=== PATIENT | male | born 1980 | race Caucasian/White ===

== ENCOUNTER 2016-12-14 12:22 | Emergency (ER) | payer MEDICAID ==
[~2016-12-14] VITALS: Ht 175.3 cm; Wt 74.8 kg
[~2016-12-14 12:22] MED LIST: FERR-57 PO; LEVO500T20 PO; LOSA100T11 PO; METF-510 PO; METR500T PO; MULT-74 PO
[2016-12-14 12:25] VITALS: BP_SYST 188
--- NOTE | 2016-12-14 12:25 | NUR ---
Patient triaged and placed in waiting room. VSS and patient appears in no acute distress at this time. Accompanied by family, awaiting available bed, and MD notified of need for MSE.
--- NOTE | 2016-12-14 12:29 | NUR ---
Patient to ER stating that he was fixing his car and a piece of equipment fall on his face. Patient has trauma to the upper teeth and inside upper gum with pain upper teeth, states teeth are loose, chin and headache /. Denies KO, -NV, -blurry vision, ambulated with steady gait, no bleeding at this time, no signs of acute distress.
--- NOTE | 2016-12-14 12:31 | NUR ---
ER MD Contreras at bedside evaluating the patient
[2016-12-14] MEDS ORDERED: KETOROLAC TROMETHAMINE 60 MG/2 ML VIAL IM ONE (13:00)
--- NOTE | 2016-12-14 13:27 | NUR ---
ER MD Contreras aware of VS
--- NOTE | 2016-12-14 13:34 | NUR ---
ER MD Contreras at bedside discussing BP home management and the need to see primary physician for BP management. Patient verbalizes understanding
[2016-12-14] MEDS ORDERED: cloNIDine HCL 0.1 MG TABLET PO ONE (13:45)
--- NOTE | 2016-12-14 14:25 | NUR ---
ER MD Contreras aware of VS. States OK to discharge
[2016-12-14 14:27] VITALS: BP_SYST 159
--- NOTE | 2016-12-14 14:27 | NUR ---
Patient given written and verbal discharge instructions and verbalizes understanding. ER MD Contreras discussed with patient the results and treatment provided. Patient in stable condition. ID arm band removed. Rx of motrin & chlorhexidine given. Patient educated on pain management and to follow up with PMD. Pain Scale 0/10. Opportunity for questions provided and answered. Patient advised to see primary physician and/or to return to ER if symptoms get worse.
== END 2016-12-14 14:27 | disposition home or self-care (01) ==
LOC: SED 12:22
DX: S01.511A Laceration without foreign body of lip, initial encounter (principal); S00.83XA Contusion of other part of head, initial encounter; S09.93XA Unspecified injury of face, initial encounter; I10 Essential (primary) hypertension; E11.9 Type 2 diabetes mellitus without complications; Z88.5 Allergy status to narcotic agent; W20.8XXA Other cause of strike by thrown, projected or falling object, initial encounter; Y93.89 Activity, other specified; Y99.8 Other external cause status; Y92.89 Other specified places as the place of occurrence of the external cause
CPT/HCPCS: 70486; 96372; 99284; J1885

== ENCOUNTER 2018-06-13 13:34 | Inpatient (IN) | payer MEDICAID ==
[~2018-06-13] VITALS: Ht 175.3 cm; Wt 75.3 kg
[~2018-06-13 13:34] MED LIST changes: -LOSA100T11 PO; +LOSA100T3 PO
[2018-06-13 13:41] VITALS: BP_SYST 146
[2018-06-13] MEDS ORDERED: ONDANSETRON HCL 4 MG/2 ML VIAL IVP ONE (14:15)
[2018-06-13] MEDS ORDERED: NACL 0.9% 1,000 ML IV ONE (14:15)
[2018-06-13 14:55] LABS: CALCIUM 8.2 mg/dL (8.4-11.0); CREATININE 4.96 mg/dL (0.55-1.30); POTASSIUM 5.1 mmol/L (3.5-5.1)
[2018-06-13 15:00] LABS: ALBUMIN 2.2 g/dL (3.4-4.8); TOTAL BILIRUBIN 0.2 mg/dL (0.0-1.0)
[2018-06-13 15:05] LABS: HEMATOCRIT 37.3 % (36-54); HEMOGLOBIN 12.1 g/dL (14.0-18.0); MEAN CORPUSCULAR HEMOGLOBIN 27 pg (27-31); MEAN CORPUSCULAR HGB CONC 32 % (32-36); MEAN CORPUSCULAR VOLUME 84 fL (79.0-98.0); PLATELET COUNT (AUTO) 392 K/uL (130-430); RED BLOOD CELL COUNT(AUTO) 4.46 MIL/uL (4.2-6.2); RED CELL DISTRIBUTION WIDTH 12.7 % (9.0-15.0); WHITE BLOOD COUNT (AUTO) 7.5 K/uL (4.8-10.8)
[2018-06-13 15:11] LABS: BILIRUBIN,URINE NEGATIVE (NEGATIVE); BLOOD, URINE 2+ (NEGATIVE); CLARITY/URINE CLOUDY (CLEAR); COLOR,URINE YELLOW (YELLOW); GLUCOSE,URINE TRACE (NEGATIVE); KETONES,URINE NEGATIVE (NEGATIVE); LEUKOCYTE ESTERASE ,URINE NEGATIVE (NEGATIVE); NITRITE, URINE NEGATIVE (NEGATIVE); PH,URINE 5.5 (5.0-8.0); PROTEIN URINE 3+ (NEGATIVE); UROBILINOGEN,URINE 0.2 (0.2-1.0)
[2018-06-13 15:15] LABS: BACTERIA,URINE MODERATE /HPF (None Seen); WBC,URINE 0-3 /HPF (0-3)
[2018-06-13 15:16] LABS: FINE GRANULAR CASTS,URINE 0-10 /LPF (None Seen)
[2018-06-13 15:21] LABS: BARBITURATE, URINE NEGATIVE (NEG <=200); BENZODIAZEPINE, URINE NEGATIVE (NEG <=150); CANNABINOID, URINE NEGATIVE (NEG <=50); COCAINE, URINE NEGATIVE (NEG <=150); METHAMPHETAMINES SCREEN,URINE NEGATIVE (NEG <=500); OPIATE, URINE NEGATIVE (NEG <=100); PHENCYCLIDINE SCREEN,URINE NEGATIVE (NEG <=25); UR TRICYCLIC ANTIDEPRESSANTS NEGATIVE (NEG <=300); URINE AMPHETAMINE NEGATIVE (NEG <=500); URINE METHADONE NEGATIVE (NEG <=200); URINE OXYCODONE SCREEN NEGATIVE (NEG <=100); URINE PROPOXYPHENE SCREEN NEGATIVE (NEG <=300)
[2018-06-13] MEDS ORDERED: LISI-600 PO ×2 (16:02→16:04)
[2018-06-13] MEDS ORDERED: GLIP10TA11 PO ×2 (16:02→16:04)
[2018-06-13] MEDS ORDERED: LOM2.5 PO (16:05)
[2018-06-13 16:14] LABS: BAND % (MANUAL) 54 % (0-6); EOSINOPHILS % (MANUAL) 0 % (0-7); LYMPHOCYTES % (MANUAL) 8 % (20-46); MONOCYTES % (MANUAL) 6 % (0-11)
[2018-06-13 16:16] LABS: BASOPHILS % (MANUAL) 0 % (0-2)
[2018-06-13 16:22] VITALS: BP_SYST 109
[2018-06-13] MEDS: NACL 0.9% 1,000 ML IV SCH (17:43)
[2018-06-13 20:00] VITALS: BP_SYST 117
[2018-06-13] MEDS ORDERED: ACETAMINOPHEN 325 MG TABLET PO PRN (21:30)
[2018-06-13] MEDS ORDERED: LORazepam 2 MG/ML VIAL IVP PRN (21:30)
[2018-06-13] MEDS ORDERED: DEXTROSE 50% JECT 50 ML DISP.SYRIN IVP PRN ×2 (21:30)
[2018-06-13] MEDS ORDERED: HYDROcodone/ACETAMIN 5-325 MG TAB (NORCO/ VICODIN) PO PRN (21:30)
[2018-06-13] MEDS ORDERED: INSULIN REGULAR, HUMAN 100 UNITS/ML, 10 ML VIAL (novoLIN R) SUBCUT PRN (21:30)
[2018-06-13] MEDS ORDERED: HYDROcodone/ACETAMIN 10-325 MG TAB PO PRN (21:30)
[2018-06-13] MEDS ORDERED: ONDANSETRON HCL 4 MG/2 ML VIAL IVP PRN (21:30)
[2018-06-14] VITALS: BP_SYST 118
[2018-06-14] MEDS: NACL 0.9% 1,000 ML IV SCH ×3 (03:05→14:54)
[2018-06-14] MEDS: DIPHENOXYLATE HCL/ATROP SULF 2.5 MG TAB PO SCH ×2 (03:35→14:54)
[2018-06-14 06:55] LABS: BASOPHILS # (AUTO) 0.1 K/uL (0.0-0.2); BASOPHILS % (AUTO) 0.8 % (0.0-2.0); EOSINOPHILS # (AUTO) 0.1 K/uL (0.0-0.4); EOSINOPHILS % (AUTO) 1.7 % (0.0-4.0); HEMATOCRIT 33.7 % (36-54); HEMOGLOBIN 11.1 g/dL (14.0-18.0); LYMPHOCYTES # (AUTO) 2.1 K/uL (1.0-5.5); MEAN CORPUSCULAR HEMOGLOBIN 28 pg (27-31); MEAN CORPUSCULAR HGB CONC 33 % (32-36); MEAN CORPUSCULAR VOLUME 85 fL (79.0-98.0); MONOCYTES % (AUTO) 13.8 % (1.7-9.3); NEUTROPHILS # (AUTO) 4.2 K/uL (1.8-7.7); NEUTROPHILS % (AUTO) 55.7 % (40.0-70.0); PLATELET COUNT (AUTO) 373 K/uL (130-430); RED BLOOD CELL COUNT(AUTO) 3.97 MIL/uL (4.2-6.2); RED CELL DISTRIBUTION WIDTH 12.8 % (9.0-15.0); WHITE BLOOD COUNT (AUTO) 7.5 K/uL (4.8-10.8)
[2018-06-14 07:13] LABS: ALBUMIN 2.2 g/dL (3.4-4.8); CALCIUM 8.3 mg/dL (8.4-11.0); CREATININE 4.44 mg/dL (0.55-1.30); POTASSIUM 4.2 mmol/L (3.5-5.1); TOTAL BILIRUBIN 0.1 mg/dL (0.0-1.0)
[2018-06-14 08:00] VITALS: BP_SYST 146
[2018-06-14] MEDS ORDERED: DIATR MEGLU/DIATRIZ SOD 30 ML SOLUTION PO ONE (08:39)
[2018-06-14] MEDS ORDERED: LOSARTAN POTASSIUM 50 MG TABLET (COZAAR) PO SCH (09:00)
[2018-06-14] MEDS ORDERED: LEVOFLOXACIN 500 MG TABLET PO SCH (09:00)
[2018-06-14] MEDS ORDERED: FERROUS SULFATE 325 MG TABLET.DR PO SCH (09:00)
[2018-06-14] MEDS ORDERED: MULTIVITS,CA,MINERALS/IRON/FA 1 TABLET PO SCH (10:00)
[2018-06-14] MEDS: metroNIDAZOLE 500 MG TABLET PO SCH ×2 (11:36→11:51)
[2018-06-14 12:51] VITALS: BP_SYST 142
[2018-06-14 15:35] VITALS: BP_SYST 142
[2018-06-15] MEDS ORDERED: LEVOFLOXACIN 250 MG TABLET PO SCH (09:00)
== END 2018-06-14 16:05 | disposition short-term general hospital (02) | DRG 469 ==
LOC: SED 13:34 → SMU 15:58
PROVIDERS: ADMIT Preventive Medicine Preventive Medicine/Occupational Environmental Medicine; ATTEND Preventive Medicine Preventive Medicine/Occupational Environmental Medicine
DX: N17.0 Acute kidney failure with tubular necrosis (principal); E43 Unspecified severe protein-calorie malnutrition; E11.21 Type 2 diabetes mellitus with diabetic nephropathy; I13.10 Hypertensive heart and chronic kidney disease without heart failure, with stage 1 through stage 4 chronic kidney disease, or unspecified chronic kidney disease; E86.0 Dehydration; E87.1 Hypo-osmolality and hyponatremia; E11.65 Type 2 diabetes mellitus with hyperglycemia; E11.319 Type 2 diabetes mellitus with unspecified diabetic retinopathy without macular edema; D64.9 Anemia, unspecified; D72.825 Bandemia; E83.51 Hypocalcemia; K52.9 Noninfective gastroenteritis and colitis, unspecified; I25.10 Atherosclerotic heart disease of native coronary artery without angina pectoris; N39.0 Urinary tract infection, site not specified; N18.9 Chronic kidney disease, unspecified; E88.09 Other disorders of plasma-protein metabolism, not elsewhere classified; K29.70 Gastritis, unspecified, without bleeding; E11.22 Type 2 diabetes mellitus with diabetic chronic kidney disease; Z88.5 Allergy status to narcotic agent
CPT/HCPCS: 36415; 76770; 80053; 80307; 81000-TC; 82962; 83735-TC; 84100-TC; 84484; 85007; 85025; 85027; 86710; 87040-TC; 87045-TC; 87046; 87086; 87230-TC; 93306; 93880; 96361; 96374; 99285; J2405; J7030; Q9964